=== PATIENT | male | born 1990 | race Caucasian/White ===

== ENCOUNTER 2017-06-07 08:14 | Emergency (ER) | payer SELFPAY ==
[~2017-06-07] VITALS: Ht 172.7 cm; Wt 86.3 kg
[2017-06-07 08:18] VITALS: Ht 172.7 cm; Wt 86.3 kg
[2017-06-07] MEDS ORDERED: IBUPROFEN 800 MG TAB PO ONE (09:00)
--- NOTE | 2017-06-07 09:06 | RADRPT ---
PROCEDURE: XR Foot. CLINICAL INDICATION: right foot pain TECHNIQUE: AP, lateral and oblique views of the right foot was obtained. The images were reviewed on a PACS workstation. COMPARISON: None. FINDINGS: The bones of the foot appear intact, with no evidence of acute fracture, dislocation, or subluxation . The joint spaces are preserved. Bone mineralization is normal. No significant soft tissue swelling is seen. IMPRESSION: Unremarkable right foot radiographs. RPTAT: EE Physician Marlene Date Time Electronically viewed and signed by Physician Marlene on 06/07/2017 09:06 RA/
[2017-06-07] MEDS ORDERED: NAPR-260 PO (09:30)
--- NOTE | 2017-06-07 09:34 | ERD ---
ER Documentation Chief Complaint Date/Time DATE: 06/07/17 TIME: 09:33 Chief Complaint PT PRESENTS WITH R FOOT PAIN SINCE LAST NIGHT AFTER TWISTING IT. HPI 26-year-old male coming in complaining of right foot pain after twisting injury yesterday. Patient has not taken medication for pain. He is only put ice on the extremity. Patient has pain with weightbearing activities. He is no numbness or tingling to his right foot. Patient has never had pain like this before. Patient rates pain 7 out of 10. 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 Denies other medical problems. Denies allergies to medication. Denies surgery. Denies Social history. ROS All systems reviewed and are negative except as per history of present illness. Medications Home Meds Active Scripts Naproxen* (Naprosyn*) 500 Mg Tablet, 500 MG PO BID Y for PAIN AND/OR INFLAMMATION, #30 TAB Prov:CHITO ELENA PA-C 06/07/17 Allergies Allergies: Coded Allergies: No Known Allergy (Unverified , 06/07/17) PMhx/Soc Medical and Surgical Hx: pt denies Medical Hx, pt denies Surgical Hx Hx Alcohol Use: No Hx Substance Use: No Hx Tobacco Use: No Smoking Status: Never smoker Physical Exam Vitals Vital Signs Date Time Temp Pulse Resp B/P Pulse Ox O2 Delivery O2 Flow Rate FiO2 06/07/17 08:18 97.9 71 18 141/86 99 Physical Exam GENERAL: The patient is well-appearing, well-nourished, in no acute distress CHEST: Clear to auscultation bilaterally. There are no rales, wheezes or rhonchi. HEART: Regular rate and rhythm. No murmurs, clicks, rubs or gallops. No S3 or S4. EXTREMITIES: Tender to palpation over right lateral foot at the base of the fifth metatarsal. Mild swelling with mild ecchymosis appreciated. Normal flexion extension with strength 5 out of 5 to the right lower extremity. Pulses intact. No syndesmotic pain. No calf tenderness. Cap refill less than 2 seconds. No obvious deformity. NEUROLOGIC: Alert and oriented. Cranial nerves II through XII intact. Motor strength in all 4 extremities with 5 out of 5 strength. Sensation grossly intact. Normal speech and gait. Babinski negative. DTR 2+ throughout. SKIN: There is no apparent rash or petechiae. The skin is warm and dry. Results 24 hrs Current Medications Medications (Trade) Dose Ordered Sig/Sondra Route PRN Reason Start Time Stop Time Status Last Admin Dose Admin Ibuprofen (Motrin) 800 mg ONCE ONCE PO 06/07/17 09:00 06/07/17 09:01 DC 06/07/17 08:40 Procedures/MDM DIAGNOSTIC IMAGING REPORT Patient: CHAITANYA MEJIA : 1990 Age: 26 Sex: M MR #: [id number] DOS: 06/07/17 0834 Ordering MD: JARED ELENA PA-C Location: [facility] Room/Bed: PROCEDURE: XR Foot. CLINICAL INDICATION: right foot pain TECHNIQUE: AP, lateral and oblique views of the right foot was obtained. The images were reviewed on a PACS workstation. COMPARISON: None. FINDINGS: The bones of the foot appear intact, with no evidence of acute fracture, dislocation, or subluxation. The joint spaces are preserved. Bone mineralization is normal. No significant soft tissue swelling is seen. IMPRESSION: Unremarkable right foot radiographs. ER Course: X-ray reviewed by myself as well as radiologist. Ibuprofen given to patient for pain control. Seun wrap applied to right foot. Patient's foot was neurovascularly intact pre-and post splint application. Crutches given to patient at time of discharge. MDM: 26-year-old male complaining of right foot pain 1 day. I have low suspicion for acute fracture dislocation. Patient's x-rays appeared to show signs of sprain as there is no obvious fracture seen on x-ray. Patient will be recommended to remain nonweightbearing. Patient was given a note for work. I have low suspicion for neurodeficit or tendon or ligament injury. Patient's exam is not concerning. Patient is recommended to ice, elevate, compress, and rest ankle. Patient was recommended to follow-up with primary care within 1 to days for close evaluation. Patient was told to return to ER if symptoms change or worsen. All questions answered time of discharge. Patient is to comply plan. Departure Diagnosis: Primary Impression: Foot pain Condition: Stable Patient Instructions: Sprain Foot Referrals: COMM[facility] YOU HAVE RECEIVED A MEDICAL SCREENING EXAM AND THE RESULTS INDICATE THAT YOU DO NOT HAVE A CONDITION THAT REQUIRES URGENT TREATMENT IN THE EMERGENCY DEPARTMENT. FURTHER EVALUATION AND TREATMENT OF YOUR CONDITION CAN WAIT UNTIL YOU ARE SEEN IN YOUR DOCTORS OFFICE WITHIN THE NEXT 1-2 DAYS. IT IS YOUR RESPONSIBILITY TO MAKE AN APPOINTMENT FOR FOLOW-UP CARE. IF YOU HAVE A PRIMARY DOCTOR --you should call your primary doctor and schedule an appointment IF YOU DO NOT HAVE A PRIMARY DOCTOR YOU CAN CALL OUR PHYSICIAN REFERRAL HOTLINE AT IF YOU CAN NOT AFFORD TO SEE A PHYSICIAN YOU CAN CHOSE FROM THE FOLLOWING [facility] [id number] [address] [facility] [facility] [address] [facility] [facility] [address] [facility] [facility] [address] [facility] [facility] [address] [facility]. [facility] [address] Additional Instructions: FOLLOW UP WITH YOUR PRIMARY CARE PHYSICIAN TOMORROW.Return to this facility if you are not improving as expected. CHITO ELENA PA-C Jun 07, 2017 09:34
== END 2017-06-07 09:55 | disposition home or self-care (01) ==
LOC: FTE 08:14
DX: M79.671 Pain in right foot (principal)
CPT/HCPCS: 73630